=== PATIENT | female | born 1930 ===

== ENCOUNTER 2019-09-21 07:58 | Outpatient (CLI) | payer OTHER | END 2019-09-21 08:00 | disposition home or self-care (01) | LOC: LAB 07:58 | DX: E78.49 Other hyperlipidemia (principal); G31.84 Mild cognitive impairment of uncertain or unknown etiology; R73.09 Other abnormal glucose; I10 Essential (primary) hypertension; M81.0 Age-related osteoporosis without current pathological fracture ==

== ENCOUNTER 2020-01-18 08:27 | Outpatient (CLI) | payer OTHER | END 2020-01-18 08:31 | disposition home or self-care (01) | LOC: LAB 08:27 | DX: E78.49 Other hyperlipidemia (principal); I67.89 Other cerebrovascular disease; R73.09 Other abnormal glucose; I10 Essential (primary) hypertension; R73.03 Prediabetes ==

== ENCOUNTER 2020-05-23 08:33 | Outpatient (CLI) | payer OTHER | END 2020-05-23 08:58 | disposition home or self-care (01) | LOC: LAB 08:33 | PROVIDERS: ATTEND Internal Medicine | DX: E78.49 Other hyperlipidemia (principal); R73.03 Prediabetes; M81.0 Age-related osteoporosis without current pathological fracture ==

== ENCOUNTER → 2020-10-03 09:16 | Outpatient (CLI) | payer OTHER | END | disposition home or self-care (01) | LOC: LAB 09:16 | PROVIDERS: ATTEND Internal Medicine | DX: E78.49 Other hyperlipidemia (principal); M81.0 Age-related osteoporosis without current pathological fracture; G31.84 Mild cognitive impairment of uncertain or unknown etiology; R73.03 Prediabetes ==

== ENCOUNTER 2021-10-23 09:17 | Outpatient (CLI) | payer OTHER | END 2021-10-23 09:18 | disposition home or self-care (01) | LOC: LAB 09:17 | PROVIDERS: ATTEND Internal Medicine | DX: I10 Essential (primary) hypertension (principal); R73.03 Prediabetes; E78.49 Other hyperlipidemia ==

== ENCOUNTER 2022-03-05 08:00 | Outpatient (CLI) | payer OTHER | END 2022-03-05 08:30 | disposition home or self-care (01) | LOC: PPH VACUNA 08:00 | PROVIDERS: ATTEND Emergency Medicine Pediatric Emergency Medicine | DX: Z23 Encounter for immunization (principal) ==

== ENCOUNTER → 2022-04-02 11:14 | Outpatient (CLI) | payer OTHER | END | disposition home or self-care (01) | LOC: NUCLEAR 11:00 | PROVIDERS: ATTEND Internal Medicine | DX: M81.0 Age-related osteoporosis without current pathological fracture (principal) ==